=== PATIENT | female | born 1990 | race Caucasian/White ===

== ENCOUNTER 2020-02-27 14:38 | Emergency (ER) | payer BC, SELFPAY ==
[2020-02-27 14:44] VITALS: BP 132/85; PULSE 81; RESP 16; TEMP 36.6; O2SAT 98; BMI 22.6
[2020-02-27 18:11] VITALS: BP 117/80; PULSE 88; O2SAT 100
[2020-02-27 18:13] VITALS: BP 117/75; PULSE 76; O2SAT 100
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
== END 2020-02-27 18:14 | disposition home or self-care (01) ==
PROVIDERS: Emergency Provider Nurse Practitioner Family; PCP Family Medicine
DX: M54.5 Low back pain (principal)
CPT/HCPCS: 99281